=== PATIENT | male | born 1985 | race Caucasian/White ===

== ENCOUNTER 2024-06-14 16:33 | Emergency (ER) | payer BC, SELFPAY ==
[2024-06-14 16:38] VITALS: BP 140/101
[2024-06-14 17:03] LABS: COVID-19 Antigen Negative (Negative)
[2024-06-14 18:52] VITALS: BP 128/94
--- NOTE | 2024-06-14 19:50 | ED.GENMED ---
History of Present Illness
General
Chief Complaint: Fever
Source: patient
Exam Limitations: none
Time Seen by Provider: 06/14/24 19:33
History of Present Illness
History of Present Illness:
This is a 39 year old male that comes in with c/o fever. States that he has had a fever since Saturday. States that it was 102 and he just had to come in today. States that he has been unable to get his fever down. States that he took Tylenol 500mg at
3pm and Motrin 800mg. States that he also has body aches. States that he has had chills with the fever, SOB, and a headache. Denies any chest pain, abd pain, nausea, vomiting, diarrhea, dizziness, urinary burning.
Past History
Past History
ED Past Medical History: None; Negative Asthma, HTN, Hypercholesterolemia or NIDDM
ED Past Surgical History: Other (Eye surgery for lazy eye)
Social History
Tobacco: Non-smoker
Alcohol: Occasional
Drug: None
Personal:
Living: with family
Employment: Employed
Review of Systems
Review of Systems
All Other Systems: ROS reviewed and negative except as documented in HPI and ROS
Constitutional: Reports fever and chills
EENT: Reports no symptoms
Respiratory: Reports cough and trouble breathing
Cardiac: Reports no symptoms; Denies chest pain
ABD/GI: Reports no symptoms; Denies abdominal pain, nausea, vomiting or diarrhea
: Reports no symptoms; Denies dysuria, frequency or urgency
Musculoskeletal: Reports no symptoms
Skin: Reports no symptoms
Neurological: Reports headache; Denies dizzy
Psychiatric: Reports no symptoms
Phy Exam
General Physical Exam
General Presentation: no apparent distress
General age: appears stated age
General Skin: warm and dry
General Habitus: normal
General Mental: alert
General Hydration: appears well hydrated
ENT Exam
ENT Exam: TM's normal, pharynx normal (negative for any redness or exudate) and neck supple
Eye Exam
Eye Exam: EOMI
Cardiovascular Exam
Cardiovascular Exam: regular rate/rhythm, no edema, no murmur and normal peripheral pulses
Pulmonary Exam
Pulmonary Exam: lungs clear, no respiratory distress, no rales, chest non tender, no crackles, no rhonchi, no wheezing and other (Dry cough noted)
Gastrointestinal Exam
Gastrointestinal Exam: normal bowel sounds, non tender, soft, no organomegaly, no pulsatile mass and non distended
Musculoskeletal Exam
Musculoskeletal Exam: full ROM and no edema
Skin Exam
Skin Exam: normal color, warm/dry, no rash and no petechia
Course
Orders/Labs/Results
Orders:
Orders
06/14/24 16:39
COVID-19 Antigen Urgent
Source: Nasal Swab
Influenza A+B Rapid Molecular Urgent
TYLER Source: Nasal Swab
Specimen Description:
06/14/24 19:47
0.9% Sodium Chloride 1000 ml [Nss] 1,000 ml IV BOLUS
Acetaminophen [Tylenol] 500 mg PO NOW STA
CR Chest - 2 Views Urgent
Comment:
Reason For Exam: Fever. cough
06/14/24 20:14
Complete Blood Count/With Diff Urgent
Comprehensive Metabolic Panel Urgent
Monotest Urgent
Throat Culture [Throat Culture, Comprehensive] Urgent
TYLER Source: Tonsil
Specimen Description:
Date Specimen was Collected: 06/14/24
Time Specimen was Collected: 20:11
06/14/24 20:15
Lactate Level [Lactic Acid] Urgent
Urinalysis Reflex To Culture Urgent
Date Specimen was Collected: 06/14/24
Time Specimen was Collected: 20:11
Rapid Strep Group A Urgent
TYLER Source: Throat/Pharynx
Specimen Description:
Date Specimen was Collected: 06/14/24
Time Specimen was Collected: 20:11
Abnormal Lab Results
06/14/24 06/14/24
20:14 20:15
MCV 79.0 L fL
(80.0-94.0)
Plt Count 124 L 10^3/uL
(130-400)
MPV 11.3 H fL
(7.4-10.4)
Absolute Lymphs (auto) 0.7 L 10^3/uL
(1.2-3.4)
Neutrophils % 80.5 H %
(42.2-75.2)
Lymphocytes % 10.6 L %
(20.5-51.1)
Chloride 97 L mmol/L
(98-107)
Glucose 122 H mg/dl
(70-99)
Total Bilirubin 2.5 H mg/dl
(0.2-1.3)
ALT 54 H U/L
(0-50)
Urine Ketones Trace A
(Negative)
06/14/24 20:14
06/14/24 20:14
COVID and Influenza negative, Plt slightly low. Nonfasting blood sugar, total fabiola elevation. ALT slightly elevated. Urine negative for infection. Imperial negative. lactic acid normal at 1.0
Vital Signs
Initial and Last Documented VS:
Initial Vital Signs
Temp Pulse Resp BP Pulse Ox
101.1 F H 103 20 140/101 95
06/14/24 16:38 06/14/24 16:38 06/14/24 16:38 06/14/24 16:38 06/14/24 16:38
Last Documented Vital Signs
Temp Pulse Resp BP Pulse Ox
99.3 F 103 15 144/90 97
06/14/24 18:52 06/14/24 18:52 06/14/24 18:52 06/14/24 20:31 06/14/24 20:31
MDM/Problems Addressed
Differential Diagnosis Includes:
Imperial, Viral illness
MDM/Problems Addressed:
This is a 39 year old male that comes in with c/o fever for the past 3 days. States that his temp was 102 and he was unable to get it down. States that he has body aches.
will check labs, give IV fluids, Tylenol, Urine, chest X-ray
Back into see patient. Patient states that he is feeling a little better. Explained that he has left lower lobe Pneumonia. Will start on antibiotics. Patient to alternate Tylenol and Ibuprofen. Return with any concerns.
Chronic conditions affecting care:
NA
Acute Exacerbation and/or Progression of Chronic Illness:
NA
*Radiology
Radiology exam reviewed: radiology read reviewed (Chest- left lower lobe Pneumonia)
*Pulse Oximetry
Patient hypoxic: no
*EKG
Interpreted by ED Provider?: NA
Rate: EKG- N/A
*Health Services Administrator Interpretation
Rate: Health Services Administrator- N/A
*Critical Care Note
Total Time (30-74mins, 75-104mins- exclusive of procedures): Not Applicable
ED Attending Note
-
Portions of this chart may have been created with voice recognition software.� Occasional wrong word or��sound alike� substitutions may have occurred due to the inherent limitations of voice recognition software.
Discharge Plan
Departure
Patient Disposition: Home (Routine Discharge)
Date of Disposition: 06/14/24
Time of Disposition: 21:40
Patient with high blood pressure during this ER visit?: Yes
Condition: Good
Covid-19: Negative COVID-19
Discharge Problem:
Left lower lobe pneumonia
Instructions: Pneumonia, Adult (DC), BLOOD PRESSURE
Prescriptions:
New
doxycycline hyclate 100 mg capsule
100 mg PO BID Qty: 19 0RF
Referrals:
Saul De La Garza MD [Family Provider] - Follow up in 5-7 days
Activity Restrictions/Additional Instructions:
As discussed, you have a left lower lobe Pneumonia. Please increase your water intake to 8-8oz glasses daily. You may use Tylenol 1000mg every 6 hours for fever and body ache and alternate with Ibuprofen 600mg every 6 hours with food for fever and
body aches. You have been given your first dose of antibiotic here and a prescription has been sent to your Pharmacy. Follow up with the family doctor in the next 5-7 days for recheck. IF YOU HAVE INCREASED SHORTNESS OF BREATH, OR YOU HAVE ANY OTHER
CONCERNS PLEASE RETURN TO THE EMERGENCY ROOM.
Interventions
Interventions:
*Risk Screen - Suicide Last Done: 06/14/24 20:31
*General Assessment Last Done: 06/14/24 20:31
*Neglect/Abuse Screening Last Done: 06/14/24 20:31
ED- Fall Risk Assessment Last Done: 06/14/24 19:48
*ED COVID-19 Vaccine History Last Done: 06/14/24 20:31
ED- Neurological Assessment Last Done: 06/14/24 19:48
ED-Skin Assessment Last Done: 06/14/24 19:48
Discharge Date and Time
Print Language: ARMENIAN
[2024-06-14 20:14] VITALS: BMI 27.1
[2024-06-14] MEDS: TYLENOL 500 MG PO (20:29)
[2024-06-14] MEDS: NSS 1000 IV (20:29)
[2024-06-14 20:31] VITALS: BP 144/90
[2024-06-14 20:38] LABS: Urine Albumin Negative (Neg - Trace); Urine Bilirubin Negative (Negative); Urine Character Clear (Clear); Urine Color Yellow; Urine Glucose Negative (Negative); Urine Ketone Trace (Negative); Urine Leukocyte Negative (Negative); Urine Nitrite Negative (Negative); Urine Occult Blood Negative (Negative); Urine Urobilinogen Negative (Neg - 1+)
[2024-06-14 20:39] LABS: % Basophils 0.5 % (0-2); % Eosinophils 0.2 % (0-6); % Immature Granulocytes 0.3 % (0-0.5); % Lymphocytes 10.6 % (20.5-51.1); % Monocytes 7.9 % (1.7-9.3); % Neutrophils 80.5 % (42.2-75.2); Absolute Lymphocytes 0.7 10^3/uL (1.2-3.4); Absolute Monocytes 0.5 10^3/uL (0.1-0.6); Absolute Neutrophils 5.1 10^3/uL (1.4-6.5); Hematocrit 43.3 % (39.0-52.0); Hemoglobin 15.7 g/dL (13.0-18.0); Mean Corp Hgb Conc. 36.3 g/dL (33.0-37.0); Mean Corpuscular Hgb 28.6 pg (27.0-31.0); Mean Platelet Volume 11.3 fL (7.4-10.4); Nucleated Red Blood Cells % 0 % (-); Platelet Count 124 10^3/uL (130-400); Red Blood Cell Count 5.48 10^6/uL (4.70-6.10); Red Cell Dist. Width 11.5 % (11.5-14.5); White Blood Cell Count 6.3 10^3/uL (4.8-10.8)
[2024-06-14 20:53] LABS: Monotest Negative (Negative)
[2024-06-14 20:56] LABS: ALT (SGPT) 54 U/L (0-50); AST (SGOT) 55 U/L (17-59); Albumin 4.4 g/dl (3.5-5.0); Alkaline Phosphatase 78 U/L (38-126); Blood Urea Nitrogen 14 mg/dl (9-20); Carbon Dioxide 27 mmol/L (22-30); Chloride 97 mmol/L (98-107); Estimated Creatinine Clearance 95 ml/min; Glucose 122 mg/dl (70-99); Sodium 135 mmol/L (135-145); Total Bilirubin 2.5 mg/dl (0.2-1.3); eGFR > 60.00
[2024-06-14 21:00] VITALS: BP 141/91
[2024-06-14] MEDS: VIBRAMYCIN 100 MG PO (21:47)
== END 2024-06-14 22:22 | disposition home or self-care (01) ==
LOC: EMR 16:33
PROVIDERS: Clinical Nurse Specialist Family Health; Emergency Medicine; EMERGENCY PHYSICIAN Emergency Medicine; FAMILY PHYSICIAN Family Medicine
DX: J18.9 Pneumonia, unspecified organism (principal); I10 Essential (primary) hypertension; Z11.52 Encounter for screening for COVID-19
CPT/HCPCS: 99284; 96360; 71046; 80053; 81003; 83605; 85025; 86308; 87070; 87502; 87811; 87880